=== PATIENT | female | born 1970 | race Caucasian/White ===

== ENCOUNTER 2017-02-14 07:31 | Emergency (ER) | payer OTHER ==
[~2017-02-14] VITALS: Ht 162.6 cm; Wt 76.5 kg
[~2017-02-14 07:31] MED LIST: ATOR80TA PO; BUPR150T3 PO; ERGO50000 PO; GLIM2TAB PO; GLUCTAB PO; LEVO.025 PO; LISI-363 PO; LORA0.5T PO; ZETI10TA5 PO
[2017-02-14 07:33] VITALS: BP 129/63; PULSE 92; RESP 20; TEMP 97.9; O2SAT 97
[2017-02-14] MEDS ORDERED: MULTTAB67 PO (07:49)
[2017-02-14] MEDS ORDERED: VITA10002 PO (07:49)
[2017-02-14] MEDS ORDERED: CALC1TAB87 PO (07:49)
[2017-02-14] MEDS ORDERED: LEVO100T5 PO (07:49)
[2017-02-14] MEDS ORDERED: FERR240T PO (07:49)
[2017-02-14] MEDS ORDERED: BUPR150T3 PO (07:49)
--- NOTE | 2017-02-14 08:11 | PD ---
HPI Chief Complaint: Musculoskeletal Complaint Time Seen by Provider: 08:10 Travel History International Travel<30 days: No Contact w/Intl Traveler<30days: No Traveled to known affect area: No History of Present Illness HPI 46-year-old female presents to the emergency department with complaint of left knee pain with worsening this morning after stepping down on her left leg and hearing a "pop" in her left knee. She is been experiencing the pain for the last 2 weeks and her primary care provider has been treating her with meloxicam without any improvement. Denies new or recent injury. Denies previous injury. Denies paresthesias, loss of sensation, strength to the affected extremity. Reports decreased range of motion secondary to pain. Denies swelling or redness to the knee. Denies fever, vomiting. Has not taken any other medications or tried any other treatments to alleviate her symptoms. No other medical complaints. No known allergies. No other modifying factors or associated signs and symptoms. PFSH Past Medical History Cancer: No Diabetes: Yes (TYPE II) Diminished Hearing: No Endocrine: Yes Hepatitis: No Hiatal Hernia: Yes Immune Disorder: Yes (ULCERATIVE COLITIS) Medical other: Yes (INTERMITTANT MILD LYMPHEDEMA R LOWER LEG, ELEVATED CHOLESTEROL) Musculoskeletal: Yes (DEGENERATIVE DISC DISEASE LOWER BACK) Thyroid Disease: Yes (HYPO) Tetanus Vaccination: Unknown Influenza Vaccination: Yes ?: Not LMP: UNKNOWN Past Surgical History AICD: No Body Medical Devices: ALLISON BONE PLATE R EYE Eye Surgery: Yes (R LOWER ORBITAL FRACTURE REPAIR 1991) Gynecologic Surgery: Yes ( 1990, TUBAL LIGATION 1995, ENDOMETRIAL ABLATION 2007) Joint Replacement: No Oral Surgery: Yes (TONSILLECTOMY 1998) Pacemaker: No Other Surgery: Yes (gastric bypass, sinus sx, breast augmuntation, tummy tuck) Social History Alcohol Use: No Tobacco Use: No Substance Use: No Allergies-Medications (Allergen,Severity, Reaction): Coded Allergies: No Known Allergies (Verified , 05/30/14) Reported Meds & Prescriptions Reported Meds & Active Scripts Active Reported Vitamin B-12 (Cyanocobalamin) 1,000 Mcg Tab 1,000 Mcg PO DAILY Multiple Vitamin 1 Tab 1 Tab PO DAILY Levothyroxine (Levothyroxine Sodium) 100 Mcg Tab 100 Mcg PO DAILY Ferrous Gluconate 240 Mg Tab 240 Mg PO DAILY Calcium 600 with Vitamin D (Calcium Carbonate-Cholecalciferol) 600-400 mg-Unit Tab 1 Tab PO DAILY Bupropion HCl ER 24 HR (Bupropion HCl) 150 Mg Tab 150 Mg PO DAILY Review of Systems Except as stated in HPI: all other systems reviewed are Neg Physical Exam Narrative GENERAL: Well-nourished, well-developed female patient, in no acute distress; afebrile, nontoxic-appearing SKIN: Warm and dry. HEAD: Atraumatic. Normocephalic. EYES: Pupils equal and round. No scleral icterus. No injection or drainage. ENT: Mucosa pink and moist. Airway patent. NECK: Trachea midline. CARDIOVASCULAR: Regular rate. RESPIRATORY: No accessory muscle use. GASTROINTESTINAL: Rounded. MUSCULOSKELETAL: Left nonedematous, nonerythematous, and without ecchymosis; full range of motion and flexion to 90; point tenderness to the medial and posterior aspect; joint stable with negative drawer test; no obvious deformity. Left Lower extremity is supple and non-tense with 2+ pedal pulse and sensory intact and without erythema or edema. NEUROLOGICAL: Awake and alert. Oriented 3. No obvious cranial nerve deficits. Motor grossly within normal limits. Normal speech. PSYCHIATRIC: Appropriate mood and affect; insight and judgment normal. Data Data Last Documented VS Vital Signs Date Time Temp Pulse Resp B/P Pulse Ox O2 Delivery O2 Flow Rate FiO2 02/14/17 07:33 97.9 92 20 129/63 97 Room Air Orders Crutches (02/14/17 08:08) Splint Or Brace Apply/Monitor (02/14/17 08:08) MDM Medical Decision Making Medical Screen Exam Complete: Yes Emergency Medical Condition: Yes Medical Record Reviewed: Yes Differential Diagnosis Ligament tear, ligament strain, muscle strain, knee strain, bursitis, arthritis , less likely fracture or dislocation Narrative Course 46-year-old female with left knee pain that has been going on for 2 weeks with increasing pain this morning after hearing a "pop" while bearing weight. Denies injury. I do not suspect fracture or dislocation and feel that imaging is not necessary at this time. Matthew bandage and crutches provided for support. Patient has history of gastric bypass. I offered the patient a Tylenol for pain and she declined at this time. Instructed patient to take Tylenol over-the -counter as instructed not seen her for pain. patient to follow up for outpatient MRI as needed. Patient verbalizes understanding and agreement with treatment plan. Patient is medically cleared and stable for discharge. Discussed reasons to return to the emergency department. Instructed patient to follow up with primary care provider. Patient agrees with treatment plan. The patients vital signs are stable and the patient is stable for outpatient follow- up and treatment. Patient discharged home, stable and in no acute distress. Diagnosis Primary Impression: Left knee pain Qualified Code: M25.562 - Left knee pain, unspecified chronicity Referrals: Primary Care Physician Patient Instructions: General Instructions, Knee Pain (ED) Departure Forms: Tests/Procedures, Work Release Enter return to work date: February 17, 2017 Additional Instructions: Tylenol as needed and as directed to reduce pain and inflammation Rest, ice, compress, and elevate extremity to decrease pain and inflammation Knee brace for support Crutches for support Avoid aggravating activity; increase activity as tolerated Follow-up with primary care provider Follow-up with orthopedics Return to the emergency department immediately with worsening symptoms Med/Other Pt SpecificInfo: Prescription(s) given Disposition: 01 DISCHARGE HOME Condition: Stable Tameka Harvey February 14, 2017 08:11
== END 2017-02-14 08:56 | disposition home or self-care (01) ==
LOC: NEPD 07:31
DX: M25.562 Pain in left knee (principal); E11.9 Type 2 diabetes mellitus without complications; E03.9 Hypothyroidism, unspecified; M51.36 Other intervertebral disc degeneration, lumbar region
CPT/HCPCS: 99282; E0113